=== PATIENT | male | born 1970 | race Caucasian/White ===

== ENCOUNTER 2016-11-15 09:40 | Emergency (ER) | payer MEDICAID, OTHER ==
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
[2016-11-15 10:10] VITALS: RESP 16; TEMP 98.2
[2016-11-15] MEDS ORDERED: HYDROmorphONE/DILAUDID 1 MG/ML SYR IVP ONE ×2 (10:20→12:05)
[2016-11-15] MEDS ORDERED: NS 500 ML IV ONE (10:21)
[2016-11-15] MEDS ORDERED: TDAP ADULT 0.5 ML INJ (BOOSTRIX) IM ONE (10:42)
[2016-11-15 10:50] VITALS: BP 138/80; PULSE 101; O2SAT 94
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
== END 2016-11-15 12:32 | disposition short-term general hospital (02) ==
LOC: EDUNIT# → EDBD 09:40 → EDUNIT# 09:40
DX: T24.211A Burn of second degree of right thigh, initial encounter (principal); T21.16XA Burn of first degree of male genital region, initial encounter; E11.9 Type 2 diabetes mellitus without complications; J44.9 Chronic obstructive pulmonary disease, unspecified; I10 Essential (primary) hypertension; Z23 Encounter for immunization; Z86.73 Personal history of transient ischemic attack (TIA), and cerebral infarction without residual deficits; Z79.84 Long term (current) use of oral hypoglycemic drugs; X12.XXXA Contact with other hot fluids, initial encounter
CPT/HCPCS: 82947-QW; 96374; J1170